=== PATIENT | female | born 1960 | race Caucasian/White ===

== ENCOUNTER → 2020-04-10 | Outpatient (CLI) | payer BC ==
--- NOTE | 2020-04-12 09:10 | RAD ---
EXAM: Bilateral screening mammogram. HISTORY: 59-year-old female presents for screening mammography. TECHNIQUE: Full-field digital craniocaudal and mediolateral oblique views of both breasts are obtained for evaluation. Computer aided detection with itembaseD software version 9.3 was applied. COMPARISON: 04/17/2015 BREAST PARENCHYMAL DENSITY: Level C - Heterogeneously dense. FINDINGS: There is no new suspicious mass, microcalcification or region of architectural distortion. There are stable areas of asymmetry and nodularity within both breasts, allowing for differences in patient positioning and compression technique. There are few benign calcifications. IMPRESSION: BI-RADS Category 2: Benign finding(s). RECOMMENDATION: Annual mammography is recommended. If your mammogram demonstrates that you have dense breast tissue, which could hide abnormalities, and if you have other risk factors for breast cancer that have been identified, you might benefit from supplemental screening tests that may be suggested by your ordering physician. Dense breast tissue, in and of itself, is a relatively common condition. This information is not provided to cause undue concern, but rather to raise your awareness and to promote discussion with your physician regarding the presence of other risk factors, in addition to dense breast tissue. A report of your mammography results will be sent to you and your physician. You should contact your physician if you have any questions or concerns regarding this report. Mammography is a sensitive method for finding small breast cancers, but it does not detect them all and is not a substitute for careful clinical examination. A negative mammogram does not negate a clinically suspicious finding and should not result in delay in biopsying a clinically suspicious abnormality. PQRS compliance statement - Patient information was entered into a reminder system with a target due date for the next mammogram. "Our facility is accredited by the [employer] Mammography Program." Electronically signed by: Nora Carrillo MD (04/12/2020 9:07 AM) [id number]
== END ==
LOC: MAMMO 09:40
PROVIDERS: ATTEND Family Medicine
DX: Z12.31 Encounter for screening mammogram for malignant neoplasm of breast (principal)
CPT/HCPCS: 77067

== ENCOUNTER → 2020-04-28 | Outpatient (CLI) | payer BC ==
[2020-05-02 10:28] VITALS: BP 122/83
== END ==
LOC: LAB 12:00
PROVIDERS: ATTEND Nurse Anesthetist, Certified Registered
DX: Z01.812 Encounter for preprocedural laboratory examination (principal); Z20.828 Contact with and (suspected) exposure to other viral communicable diseases
CPT/HCPCS: C9803; U0003

== ENCOUNTER → 2020-05-02 | Day surgery (SDC) | payer BC ==
[~2020-05-02] MED LIST: IPRATRPIUM/ALBUTEROL 0.5/2.5MG 3 ML NEBU. NEB PRN; IV RINGERS SOLUTION,LACTATED 1,000 ML IV SCH; LIDOCAINE 2% PF 5 ML VIAL. ONE; MIDAZOLAM HCL PF 2 MG/2 ML VIAL. IV ONE; ONDANSETRON PF 4 MG/2 ML VIAL. IV PRN; PROPOFOL 10,000 MCG/ML (20ML) VIAL IV ONE
[2020-05-02 10:28] VITALS: BP 122/83
--- NOTE | 2020-05-05 15:07 | PATHOLOGY ---
[facility] Accession Number: [id number] . 01 Material submitted: . PART A: stomach - GASTRIC BIOPSY PART B: esophagus - DISTAL ESOPHAGUS. Modifiers: distal . 02 Diagnosis: A. Gastric biopsies: - Chronic gastritis, mild. . B. Esophageal biopsy, distal esophagus: - Reflux esophagitis. LBQ 05/05/2020 0939 Local . 02 Comment: Sections of the gastric biopsy reveal gastric antral-body transition mucosa showing congestion and mild chronic inflammation. A properly controlled immunoperoxidase stain for Helicobacter is negative for Helicobacter organisms. . Sections of the distal esophageal biopsy reveal a tangentially oriented segment of hyperplastic squamous esophageal mucosa with focal attached small portions of gastric mucosa showing chronic inflammation. (JPM/db; 05/05/2020) . Special stain performed: Immunoperoxidase stain for Helicobacter on A1 . 02 Electronically signed: . Jassi Steve MD, Pathologist NPI- [id number] . 01 Gross description: . A. Received in formalin labeled "Salas, Rekha, gastric BX" are two fitzgerald-brown soft tissue fragments measuring in aggregate 0.5 x 0.4 x 0.1 cm. The specimen is submitted entirely in A1. . B. Received in formalin labeled "Salas, Rekha, distal esophagus" is a fragment of fitzgerald-brown soft tissue measuring 0.3 x 0.3 x 0.1 cm. The specimen is submitted entirely in B1. ([facility] [place]; 05/03/2020) SY/[facility] 05/03/2020 1809 Local . 02 Pathologist provided ICD-10: K29.50, K21.00 . 02 CPT . 906059, 781781, C80839 Specimen Comment: A courtesy copy of this report has been sent to [phone] Specimen Comment: [id number] Specimen Comment: Report sent to / DR JONES Performed at: [address] [id number] MD Cory Andrews MD Phone: [phone] Performed at: 02 [facility] [address] [place], [place] [id number] MD Jassi Steve MD Phone: [phone]
== END | disposition home or self-care (01) ==
LOC: SURG 08:50
PROVIDERS: ATTEND Emergency Medicine
DX: K31.89 Other diseases of stomach and duodenum (principal); K22.2 Esophageal obstruction; K44.9 Diaphragmatic hernia without obstruction or gangrene; K29.50 Unspecified chronic gastritis without bleeding; K21.00 Gastro-esophageal reflux disease with esophagitis, without bleeding; Z80.0 Family history of malignant neoplasm of digestive organs; Z87.19 Personal history of other diseases of the digestive system
CPT/HCPCS: 43239; J2001; J2704; J7120